=== PATIENT | male | born 1975 | race Caucasian/White ===

== ENCOUNTER 2019-10-26 05:36 | Emergency (ER) | payer OTHER, SELFPAY ==
[2019-10-26 05:37] VITALS: BP 124/65; PULSE 95; RESP 16; TEMP 36.4; O2SAT 100
--- NOTE | 2019-10-26 06:36 | ED.DENTAL ---
HPI - Dental/Oral General Chief complaint: Dental/Oral Stated complaint: toothache Time Seen by Provider: 10/26/19 06:34 History of Present Illness HPI Narrative: Dental pain for the last 3 and half weeks, patient received penicillin for 10 days, used it for only 2 days, pain is back again. Patient denies any fever, chills, nausea, vomiting Related Data Home Medications Medication Instructions Recorded Confirmed bupropion HCl [Wellbutrin XL] 300 mg PO QAM 10/26/19 Allergies Allergy/AdvReac Type Severity Reaction Status Date / Time No Known Allergies Allergy Verified 10/26/19 06:09 Review of Systems Review of Systems: Narrative: CONSTITUTIONAL: Denies fever, chills, or sweats. EYES: Denies visual changes, redness, or discharge. ENT: Denies rhinorrhea, congestion, sore throat, or otalgia. Right lower dental pain CARDIOVASCULAR: Denies chest pain, palpitations, or edema. RESPIRATORY: Denies cough or dyspnea. GASTROINTESTINAL: Denies abdominal pain, nausea, vomiting, or diarrhea. GENITOURINARY: Denies dysuria or hematuria. SKIN: Denies rash or itching. MUSCULOSKELETAL: Denies back pain, joint pain, or myalgia. NEUROLOGIC: Denies headache, numbness, or weakness. PSYCHIATRIC: Denies anxiety or depression. [facility] Social History Social History Smoking status: Never smoker Alcohol intake: never Substance use type: marijuana Gender identity (if verbalized by the patient): Male Exam Narrative: Exam Narrative: Diffuse dental decay right lower teeth, erythematous gums, no abscess, right submandibular lymphadenopathy General appearance: Well-developed, well-nourished Skin: Normal color Head: Normocephalic, nontraumatic Eyes: Clear conjunctiva ENT: Oropharynx normal, ears normal, nose normal Neck: Supple, nontender Chest and respiratory: Airway patent, no respiratory distress, no accessory muscle use Heart: Regular rate/rhythm Vascular: Normal peripheral pulses, normal capillary refill. Neurologic: Alert and oriented ?3, [employer] is normal as tested, no gross motor deficit Course Course Emergency Course: Improving Vital Signs Vital signs: Vital Signs Temperature 36.4 C 10/26/19 05:37 Pulse Rate 95 10/26/19 05:37 Respiratory Rate 16 10/26/19 05:37 Blood Pressure 124/65 10/26/19 05:37 Pulse Oximetry 100 10/26/19 05:37 Temperature 36.4 C 10/26/19 05:37 Pulse Rate 88 10/26/19 06:56 Respiratory Rate 18 10/26/19 06:56 Blood Pressure 129/77 10/26/19 06:56 Pulse Oximetry 98 10/26/19 06:56 MDM - Dental/Oral MDM Narrative Medical decision making narrative: Dental infection, patient will be discharged on penicillin, NSAID. Critical Care Time Critical Care Time Critical Care Time: No Discharge Plan Discharge Clinical Impression: Dental caries, Dental infection Patient Disposition: Home, Self-Care Condition: Stable Instructions: Toothache (ED) Additional Instructions: Return if symptoms are worsening , call your family physician/your dentist for appointment, take Tylenol as as needed for aches and pain, continue home medications. Prescriptions: New penicillin V potassium 500 mg tablet 500 mg PO QID Qty: 40 RF: 0 No Action bupropion HCl [Wellbutrin XL] 300 mg Tablet Extended Release 24 Hr 300 mg PO QAM RF: 0 Follow-up/Referrals: Ren King DO [Primary Care Provider] - Stand Alone Forms: Work/School Release IP Discharge Date/Time: 10/26/19 06:57
[2019-10-26] MEDS: IBUPROFEN 400 MG TABLET 800 MG PO (06:48)
[2019-10-26 06:56] VITALS: BP 129/77; PULSE 88; RESP 18; O2SAT 98
== END 2019-10-26 06:57 | disposition home or self-care (01) ==
PROVIDERS: Emergency Provider Emergency Medicine; PCP Anesthesiology
DX: K02.9 Dental caries, unspecified (principal); K04.7 Periapical abscess without sinus
CPT/HCPCS: 99283; A9270

== ENCOUNTER 2020-09-23 06:54 | Outpatient (NON) | payer OTHER, SELFPAY ==
[2020-09-23 22:46] LABS: SARS-CoV-2 RNA PCR Negative
== END 2020-09-23 06:55 ==
PROVIDERS: PCP Student in an Organized Health Care Education/Training Program; Visit Provider Student in an Organized Health Care Education/Training Program
DX: Z01.812 Encounter for preprocedural laboratory examination (principal); Z20.822 Contact with and (suspected) exposure to COVID-19
CPT/HCPCS: C9803; U0003; U0005